=== PATIENT | female | born 1960 | race Two or more races ===

== ENCOUNTER 2025-05-09 14:07 | Emergency (ER) | payer SELFPAY ==
[2025-05-09 14:09] VITALS: BMI 28.1
--- NOTE | 2025-05-09 14:35 | XR_ITS ---
Examination: CT brain head without contrast. 2-D sagittal coronal reconstructions Date and time of exam: 05/09/2025 257 CTDI: vol (mGy): 44 .6 DLP: (mGycm): 860 INDICATION: Headaches for 3 days Technique: Multiple CT axial sections of the brain have been obtained, 5 mm slice thickness. Contrast has not been administered. 2-D sagittal, coronal reconstructions have been obtained Low dose protocols were performed. One or more of the following dose reduction techniques were used; automated exposure control, adjustment of the mA and/or KV according to patient size, use of iterative reconstruction technique. Findings: There is moderate generalized cerebral cortical atrophy involving both right and left frontal lobes and anterior temporal lobes. Ventricles are only minimally dilated. Pituitary gland appears normal. The CT appearance of the roy and white matter of the cerebrum cerebellum and brainstem are normal. There are heavy atherosclerotic calcifications in the internal carotid artery siphons within the cavernous sinus. IMPRESSION: 1. There is moderate frontal lobe cortical atrophy and mild atrophy of the anterior temporal lobes 2. No other worrisome findings are seen, other than some atherosclerotic calcification in the carotid artery
[2025-05-09 14:37] VITALS: BP 124/77; PULSE 75; RESP 20; TEMP 37.6; O2SAT 98
--- NOTE | 2025-05-09 14:37 | EDNOTE_ITS ---
ED Headache RME/HPI General Chief Complaint: Headache Stated Complaint: HEADACHE X5 DAYS Time Seen by Provider: 05/09/25 14:36 Source: patient Arrival date/time: 05/09/25 14:07 65-year-old female with no known medical history presents to the emergency room with a chief complaint of right sided headache x 5 days Mode of arrival: ambulatory Limitations: no limitations Related Data Previous Rx's ?Medication ?Instructions ?Recorded acetaminophen-caffeine 500 mg-65 1 tab PO Q8H PRN pain #30 tabs 05/09/25 mg tablet (Excedrin Tension Headache) Allergies Allergy/AdvReac Type Severity Reaction Status Date / Time No Known Allergies Allergy Verified 05/09/25 14:11 Review of Systems Review of Systems Systems Reviewed: All systems reviewed, normal except as documented Constitutional Constitutional: Reports system reviewed and no additional complaints, except as documented, Denies fatigue, Denies fever(s), Reports headache(s) and Denies weakness Eyes Eyes: Reports system reviewed and no additional complaints, except as documented, Denies blurry vision and Denies change in vision ENT Ears, Nose, Mouth, and Throat: Reports system reviewed and no additional complaints, except as documented, Denies otalgia, Reports headache(s), Denies nasal congestion, Denies throat swelling and Denies vertigo Cardiovascular Cardiovascular: Reports system reviewed and no additional complaints, except as documented, Denies chest pain, Denies dyspnea and Denies dyspnea on exertion Respiratory Respiratory: Reports system reviewed and no additional complaints, except as documented, Denies chest congestion, Denies cough, Denies dyspnea, Denies dyspnea on exertion and Denies wheezing Gastrointestinal Gastrointestinal: Reports system reviewed and no additional complaints, except as documented, Denies abdominal pain, Denies cramping, Denies nausea and Denies vomiting Genitourinary Genitourinary: Reports system reviewed and no additional complaints, except as documented Musculoskeletal Musculoskeletal: Reports system reviewed and no additional complaints, except as documented and Denies back pain Integumentary/Breasts Skin/Breast: Reports system reviewed and no additional complaints, except as documented and Denies wounds Neurologic Neurologic: Reports system reviewed and no additional complaints, except as documented, Denies confusion, Reports headache(s), Denies lack of coordination, Denies vertigo and Denies weakness Psychiatric Psychiatric: Reports system reviewed and no additional complaints, except as d ocumented, Denies anxiety, Denies confusion, Denies depression, Denies paranoia, Denies suicidal ideation and Denies tactile hallucinations Endocrine Endocrine: Reports system reviewed and no additional complaints, except as documented and Denies fatigue Hematologic/Lymphatic Hematologic/Lymphatic: Reports system reviewed and no additional complaints, except as documented and Denies lymphadenopathy Allergic/Immunologic Allergic/Immunologic: Reports system reviewed and no additional complaints, except as documented, Denies throat swelling, Denies urticaria and Denies wheezing Past Medical History Social History SMOKING STATUS: Never smoker ED Exam General Limitations: Present no limitations General appearance: Present alert and in no apparent distress Head Head exam: Present atraumatic, normocephalic and normal inspection Eye Eye exam: Present normal appearance, PERRL and EOMI ENT ENT exam: Present normal exam, normal oropharynx and mucous membranes moist Neck Neck exam: Present normal inspection, full ROM and trachea midline Chest Chest inspection: Present normal inspection and symmetric chest wall rise Respiratory Respiratory exam: Present normal lung sounds bilaterally Cardiovascular Cardiovascular exam: Present regular rate, normal rhythm and normal heart sounds Abdominal Exam Abdominal exam: Present soft and normal bowel sounds Extremities Exam Extremities exam: Present normal inspection and full ROM Back Exam Back exam: Present normal inspection and full ROM Neurological Exam Neurological exam: Present alert, oriented X3, CN II-XII intact, normal gait and reflexes normal Expanded Neurological Exam Patient oriented to: Present person, place and time Speech: Present fluid speech Cranial nerves: Normal: EOM function (II, III, IV, ) and facial sensation (V) Cerebellar function: Present normal gait Motor strength - LUE: 5/5 Motor strength - RUE: 5/5 Motor strength - LLE: 5/5 Motor strength - RLE: 5/5 Coma scale eye opening: spontaneous Coma scale motor response: obeys commands Coma scale verbal response: oriented Coma scale total: 15 Psychiatric Psychiatric exam: Present normal affect and normal mood Skin Skin exam: Present warm, dry, intact and normal color Course Quality Measures none Orders Category Date Time Status CT head/brain wo con Stat Exams 05/09/25 14:35 Completed CBC Stat Lab 05/09/25 15:08 Results CMP [Comprehensive Metabolic Panel] Stat Lab 05/09/25 15:08 Completed ESR [Sed Rate (ESR)] Stat Lab 05/09/25 15:08 Results Acetaminophen Tab [Tylenol ES Tab] Med 05/09/25 14:37 Discontinued 1,000 mg PO X1 ONE Ketorolac Inj [Toradol Inj] Med 05/09/25 16:45 Discontinued 30 mg IM X1 ONE Vital Signs Vital signs: Vital Signs Temperature 99.7 F 05/09/25 14:37 Pulse Rate 75 05/09/25 14:37 Respiratory Rate 20 05/09/25 14:37 Blood Pressure 124/77 05/09/25 14:37 Pulse Oximetry (%) 98 05/09/25 14:37 Oxygen Delivery Method Room Air 05/09/25 14:37 Headache MDM Narrative MDM Narrative:: 65-year-old female with no known medical history presents to the emergency room with a chief complaint of right sided headache x 5 days Patient is hemodynamically stable and in no apparent distress Physical examination shows a normal neurological exam. Pupils are PERRLA EOMs are intact the patient has no neurological or focal deficits. Patient is a GCS of 15 alert and oriented x 3 pupils are PERRLA EOMs are intact. The patient has a normal steady gait CT of the head and brain was completed and was negative for any acute findings. There was some atherosclerotic calcification in the carotid artery. The patient was educated to follow-up with her primary care provider as an MRI may be indicated if her signs symptoms continue Patient was discharged and educated to follow-up with primary care provider in the next 24 to 48 hours and return to the emergency room for any evidence of worsening signs or symptoms Patient data External records reviewed:: [facility] previous records Clinical information provided by:: patient Social determinants that could affect healthcare access:: none Patient has the following chronic illnesses:: No chronic illness How is presenting disease/condition affected by chronic disease/condition?: no chronic disease Evaluation data The following diagnostics were reviewed and interpreted by me:: lab results and radiology exam(s) Lab and/or radiology exams considered but not ordered:: Labs and radiology exams considered and ordered Interpretation Summary: CT head and brain-Findings: There is moderate generalized cerebral cortical atrophy involving both right and left frontal lobes and anterior temporal lobes. Ventricles are only minimally dilated. Pituitary gland appears normal. The CT appearance of the roy and white matter of the cerebrum cerebellum and brainstem are normal. There are heavy atherosclerotic calcifications in the internal carotid artery siphons within the cavernous sinus. IMPRESSION: 1. There is moderate frontal lobe cortical atrophy and mild atrophy of the anterior temporal lobes 2. No other worrisome findings are seen, other than some atherosclerotic calcification in the carotid artery Medications / Prescriptions Medications or Prescriptions considered but not ordered:: Medication not given Medication administrations:: Medication Administration History Discontinued Medications Acetaminophen (Acetaminophen 500 Mg Tablet) 1,000 mg PO X1 ONE Stop: 05/09/25 14:38 Last Admin: 05/09/25 15:30 Dose: 1,000 mg Documented By: [facility] Ketorolac Tromethamine (Ketorolac Inj 60 Mg/2 Ml Vial) 30 mg IM X1 ONE Stop: 05/09/25 16:46 Medication not given Consultations Consultation(s) initiated? (list below): No Diagnosis Differential diagnosis headache: migraine, tension headache, headache and sinusitis Most likely diagnosis given after review of the tests above:: Headache Admission Indicated Admission indicated?: not indicated Admission Request Was there a request for admission?: No Disposition Plan Disposition Plan: Discharge Discharge Attestation Discharge Attestation: The patient and all family members were given an opportunity to ask questions and understood the discharge instructions. Discharge instructions specifically effects, indications for sooner follow up or return to the emergency department, and the expected course of current diagnosis. Patient condition: Stable Discharge Plan Plan Patient Disposition: HOME (Self Care) Discharge Disposition comment: Stable Prescriptions/Referrals Prescriptions/Med Rec: New Excedrin Tension Headache 500-65 mg tablet 1 tab PO Q8H PRN (Reason: pain) Qty: 30 0RF Referrals: No Primary/Family,Physician [Primary Care Provider] - In 1 week Problem List Clinical Impression: Headache, Tension headache Patient/Caregiver Discharge Instructions Education Materials: Tension Headaches Additional Instructions: Por favor, comun?quese con lopez m?dico de cabecera en las pr?ximas 24 a 48 horas. La tomograf?a computarizada de lopez wanda y cerebro no mostr? hallazgos agudos. Los an?lisis de chloe tampoco mostraron hallazgos agudos. Por favor, comun?quese con lopez m?dico de cabecera en las pr?ximas 24 a 48 horas. Si andrea signos y s?ntomas persisten, podr?a ser necesaria almaz resonancia magn?magi de la wanda y el cerebro. Si presenta alg?n signo o s?ntoma que empeore, regrese a la peg de emergencias de inmediato. Print Language: [place] Stand Alone Forms: Cornelia Award Info., Work/School Release, Patient Portal Info Letter PA/REHABILITATION CENTER MANAGER Supervising Physician PA/REHABILITATION CENTER MANAGER Supervising Physician: Dr. Gomez
--- NOTE | 2025-05-09 15:18 | PC.NURSE ---
called from lobby and no answer
[2025-05-09 15:23] LABS: Basophils # (Auto) 0.0 Thou/mm3 (0.0-0.2); Basophils % (Auto) 0 % (0-2.5); Eosinophils # (Auto) 0.0 Thou/mm3 (0.0-0.5); Eosinophils % (Auto) 0 % (0-10); Hematocrit 42.6 % (36.0-46.0); Hemoglobin 13.6 g/dL (12.0-16.0); Immature Granulocytes Auto 0.01 Thou/mm3 (0.00-0.00); Lymphocytes # (Auto) 0.8 Thou/mm3 (1.0-4.8); Lymphocytes % (Auto) 21 % (10-50); Mean Corpuscular HGB Conc 31.9 g/dl (31.0-37.0); Mean Corpuscular Hemoglobin 27.0 pg (25.0-35.0); Mean Corpuscular Volume 85 fL (80-100); Monocytes # (Auto) 0.2 Thou/mm3 (0.0-0.8); Monocytes % (Auto) 6 % (0-12); Neutrophils # (Auto) 2.9 Thou/mm3 (1.8-7.7); Neutrophils % (Auto) 72 % (37-80); Nucleated Red Blood Cell # 0.00 Thou/mm3 (0.00-0.00); Nucleated Red Blood Cell % 0 /100 WBC (0); Platelet Count 182 Thou/mm3 (140-440); RDW Standard Deviation 39.4 fL (36.4-46.3); Red Blood Count 5.04 Miln/mm3 (4.00-5.20); White Blood Count 3.9 Thou/mm3 (3.6-11.0)
[2025-05-09] MEDS: ACETAMINOPHEN 500 MG TABLET 1000 MG PO (15:30)
[2025-05-09 15:44] LABS: Alanine Aminotransferase 11 U/L (10-49); Albumin, Serum 4.4 gm/dL (3.4-4.8); Albumin/Globulin Ratio 1.3 (1.2-2.2); Alkaline Phosphatase 72 U/L (46-116); Anion Gap 10 (7-16); Aspartate Amino Transferase 26 U/L (0-34); BUN/Creatinine Ratio 17 Ratio (12-20); Bilirubin,Total 0.2 mg/dL (0.3-1.2); Blood Urea Nitrogen 12 mg/dL (9-23); Calcium 9.2 mg/dL (8.3-10.6); Calcium (Corrected) 9.2 mg/dL (8.5-10.1); Carbon Dioxide 29.5 mMol/L (20.0-31.0); Chloride 101 mMol/L (98-107); Creatinine (Component) 0.7 mg/dL (0.6-1.3); Estimated Creatinine Clearance 72.5 mL/min (>60); Globulin 3.3 gm/dL (2.3-3.5); Glucose 126 mg/dL (74-106); Osmolality,Calculated 281 (275-295); Potassium 4.0 mMol/L (3.4-5.1); Sodium 140 mMol/L (136-145); Total Protein 7.7 gm/dL (5.7-8.2); eGFR > 60 See Note
[2025-05-09] MEDS: KETOROLAC INJ 60 MG/2 ML VIAL 30 MG IM (16:50)
[2025-05-09 18:16] LABS: Sed Rate (ESR) 53 mm/hr (0-30)
== END 2025-05-09 16:53 | disposition home or self-care (01) ==
PROVIDERS: Nurse Practitioner Family; Emergency Provider Emergency Medicine
DX: G44.209 Tension-type headache, unspecified, not intractable (principal); I65.29 Occlusion and stenosis of unspecified carotid artery
CPT/HCPCS: 36415; 70450; 80053; 85025; 85652; 96372; 99283; J1885; A9270